=== PATIENT | male | born 1990 | race Caucasian/White ===

== ENCOUNTER 2017-05-24 04:33 | Emergency (ER) | payer SELFPAY ==
[2017-05-24] MEDS ORDERED: Ondansetron HCl/PF 4 MG/2 ML Vial ONE (04:49)
[2017-05-24] MEDS ORDERED: Ondansetron ODT 4 MG TAB ONE (04:49)
== END 2017-05-24 05:08 | disposition home or self-care (01) ==
LOC: MADERS 04:33
DX: R11.2 Nausea with vomiting, unspecified (principal); R19.7 Diarrhea, unspecified; R50.9 Fever, unspecified; I10 Essential (primary) hypertension; F31.9 Bipolar disorder, unspecified; F20.9 Schizophrenia, unspecified; F17.210 Nicotine dependence, cigarettes, uncomplicated
CPT/HCPCS: 99283; J2405; Q0162